=== PATIENT | female | born 2000 | race Two or more races ===

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

== ENCOUNTER 2021-06-29 18:09 | Inpatient (IN) | payer BC, OTHER ==
[~2021-06-29] VITALS: Ht 154.9 cm; Wt 75.5 kg
[2021-06-29] MEDS ORDERED: methylPREDNISolone SOD SUCC PF 125 MG/2 ML VIAL. IV ONE (18:30)
[2021-06-29] MEDS ORDERED: LIDOCAINE (700MG/PATCH) PATCH. TD ONE (18:30)
[2021-06-29] MEDS ORDERED: ORPHENADRINE CITRATE 60 MG/2 ML VIAL. IV ONE (18:30)
[2021-06-29] MEDS ORDERED: KETOROLAC 30 MG/ML VIAL. IVP ONE (18:30)
[2021-06-29] MEDS ORDERED: IV NORMAL SALINE 1000ML BAG 1,000 ML IV ONE (18:30)
[2021-06-29] MEDS ORDERED: ACETAMINOPHEN 500 MG TABLET PO ONE (18:30)
--- NOTE | 2021-06-29 19:07 | PHYS DOC ---
Past Medical History Past Medical History: No Pertinent History Additional Past Medical Histor: scoliosis Past Surgical History: No Surgical History Smoking Status: Never Smoker Alcohol Use: None Drug Use: None Adult General Chief Complaint Chief Complaint: BACK PAIN - NO INJURY HPI HPI The patient is a 20-year-old female with chronic low back pain and who is otherwise healthy. She presents for evaluation of acute atraumatic worsening of her chronic bilateral low back pain. Patient states she was laying partially on and partially off the couch with her feet down on the ground when she felt a sudden small pop in her low back followed by discomfort to the bilateral par aspinal musculature. Pain does not radiate. Severity 9 out of 10 at present. No associated fevers, nausea or vomiting, abdominal pain of any kind, flank pain, dysuria, hematuria, polyuria or oliguria, unusual vaginal discharge or bleeding, changes in bowel habits, loss of bowel or bladder control, saddle anesthesia, new lower extremity weakness, numbness or tingling, no urinary retention, use of intravenous illegal drugs. Patient is alert, pleasantly and appropriately interactive and in no acute distress with appropriate vital signs upon initial evaluation here in the emergency department. No therapy for symptoms prior to arrival. Review of Systems Review of Systems A 12 point review of systems was completed and was negative except where noted in HPI above. Current Medications Current Medications Current Medications Medications (Trade) Dose Ordered Sig/[facility] Start Time Stop Time Status Last Admin Dose Admin Acetaminophen (Tylenol) 1,000 mg 1X ONCE 06/29/21 18:30 06/29/21 18:31 DC 06/29/21 19:06 1,000 MG Ketorolac Tromethamine (Toradol 30mg Vial) 30 mg 1X ONCE 06/29/21 18:30 06/29/21 18:31 DC 06/29/21 18:59 30 MG Lidocaine (Lidoderm) 1 patch 1X ONCE 06/29/21 18:30 06/29/21 18:31 DC 06/29/21 19:42 1 PATCH Methylprednisolone Sodium Succinate (SOLU-Medrol 125MG VIAL) 125 mg 1X ONCE 06/29/21 18:30 06/29/21 18:31 DC 06/29/21 18:58 125 MG Morphine Sulfate (Morphine Sulfate) 4 mg 1X ONCE 06/29/21 20:00 06/29/21 20:01 DC 06/29/21 20:12 4 MG Orphenadrine Citrate (Norflex) 30 mg 1X ONCE 06/29/21 18:30 06/29/21 18:31 DC 06/29/21 18:58 30 MG Sodium Chloride 1,000 ml @ 1,000 mls/hr 1X ONCE 06/29/21 18:30 06/29/21 19:29 DC 06/29/21 18:57 1,000 MLS/HR Allergies Allergies Allergies Coded Allergies Type Severity Reaction Last Updated Verified No Known Drug Allergies 05/06/17 No Physical Exam Physical Exam 20-year-old female appearing nontoxic and in no acute distress. Head is normocephalic and atraumatic. Neck is supple and nontender. Oropharynx is moist. Lungs are clear to auscultation at all stations. There is a normal S1 and S2 without rubs or gallops and capillary refill is appropriate, less than 2 seconds globally. Abdomen is soft, nontender and nondistended. Examination of the back reveals no erythema, warmth, swelling, step-offs or deformities but mild lower lumbar midline and bilateral paraspinal tenderness to palpation. Evaluation of the extremities reveals BUEs and BLEs neurovascularly intact distally with strength out of 5, sensation intact light touch in all nerve distributions, radial, DP and PT pulses 2+ and equal bilaterally, capillary refill less than 2 seconds, hands and feet warm and well-perfused. No dependent peripheral edema distally. No calf tenderness or swelling bilaterally. Homans test is negative bilaterally. Straight leg raise is negative bilaterally. Current Patient Data Vital Signs Vital Signs Date Time Temp Pulse Resp B/P (MAP) Pulse Ox O2 Delivery O2 Flow Rate FiO2 06/29/21 20:12 Room Air 06/29/21 19:48 114 101/73 (82) 99 06/29/21 18:09 98.2 20 98.2 Lab Values Laboratory Tests Test 06/29/21 19:50 06/29/21 19:53 06/29/21 21:00 Urine Collection Type Unknown Urine Color (Auto) Light yellow Urine Turbidity Clear Urine pH (Auto) 6.5 (<5.0-8.0) Urine Specific [place] 1.020 (1.000-1.030) Urine Protein (Auto) Negative mg/dL (Negative) Urine Glucose (Auto)(UA) Negative mg/dL (Negative) Urine Ketones (Auto) Negative mg/dL (Negative) Urine Blood (Auto) Negative (Negative) Urine Nitrite Negative (Negative) Urine Bilirubin (Auto) Negative (Negative) Urine Urobilinogen (Auto) Normal mg/dL (Normal) Urine Leukocyte Esterase (Auto) Negative (Negative) Urine RBC 0 /HPF (0-2) Urine WBC Occ /HPF (0-4) Urine Bacteria Few /HPF (0-FEW) Urine Test Negative (NEG) POC Urine HCG, Qualitative Hcg negative (Negative) White Blood Count 8.2 x10^3/uL (4.0-11.0) Red Blood Count 4.39 x10^6/uL (3.50-5.40) Hemoglobin 13.7 g/dL (12.0-15.5) Hematocrit 40.0 % (36.0-47.0) Mean Corpuscular Volume 91 fL (79-100) Mean Corpuscular Hemoglobin 31 pg (25-35) Mean Corpuscular Hemoglobin Concent 34 g/dL (31-37) Red Cell Distribution Width 13.0 % (11.5-14.5) Platelet Count 316 x10^3/uL (140-400) Neutrophils (%) (Auto) 86 % (31-73) H Lymphocytes (%) (Auto) 9 % (24-48) L Monocytes (%) (Auto) 4 % (0-9) Eosinophils (%) (Auto) 0 % (0-3) Basophils (%) (Auto) 0 % (0-3) Neutrophils # (Auto) 7.1 x10^3/uL (1.8-7.7) Lymphocytes # (Auto) 0.8 x10^3/uL (1.0-4.8) L Monocytes # (Auto) 0.3 x10^3/uL (0.0-1.1) Eosinophils # (Auto) 0.0 x10^3/uL (0.0-0.7) Basophils # (Auto) 0.0 x10^3/uL (0.0-0.2) Laboratory Tests 06/29/21 21:00 EKG EKG [] Radiology/Procedures Radiology/Procedures [] Course & Med Decision Making Course & Med Decision Making Acute on chronic atraumatic low lumbar back pain without red flags for cord compression. We will give medication as per flow sheet, will check urinalysis and urine , and will then reevaluate. If symptoms improve, likely home with medications and follow-up closely with primary care. Patient understands and agrees. 2100: Patient has been observed for multiple hours here in the emergency department. After multiple rounds of medication her back pain remains poorly controlled. She feels okay when she is not moving but when she gets up to ambulate pain is intractable. Will bring in for further care, to include neurosurgical consultation. Patient is in agreement. She is graciously accepted for admission by Dr. Cote. Quintin Disclaimer Quintin Disclaimer This electronic medical record was generated, in whole or in part, using a voice recognition dictation system. Departure Departure Impression: Primary Impression: Dorsalgia of lumbosacral region Disposition: ADMITTED INPATIENT Condition: STABLE Referrals: UNKNOWN PCP NAME (PCP) TONY MONTEZ MD Jun 29, 2021 19:07
[2021-06-29 20:00] LABS: U PREG PATIENT NEGATIVE (NEG)
[2021-06-29] MEDS ORDERED: MORPHINE SULFATE 4 MG/ML INJ. IVP ONE (20:00)
[2021-06-29 20:02] LABS: BACTERIA,URINE FEW /HPF (0-FEW); RBC,URINE 0 /HPF (0-2); WBC,URINE OCC /HPF (0-4)
[2021-06-29 21:03] LABS: BASO % 0 % (0-3); EOS % 0 % (0-3); HEMOGLOBIN 13.7 g/dL (12.0-15.5); LYMPH # 0.8 x10^3/uL (1.0-4.8); LYMPH % 9 % (24-48); MEAN CORPUSCULAR HEMOGLOBIN 31 pg (25-35); MEAN CORPUSCULAR HGB CONC 34 g/dL (31-37); MEAN CORPUSCULAR VOLUME 91 fL (79-100); MONO # 0.3 x10^3/uL (0.0-1.1); MONO % 4 % (0-9); NEUT # 7.1 x10^3/uL (1.8-7.7); NEUT % 86 % (31-73); PLATELET COUNT 316 x10^3/uL (140-400); RED BLOOD COUNT 4.39 x10^6/uL (3.50-5.40); WHITE BLOOD COUNT 8.2 x10^3/uL (4.0-11.0)
[2021-06-29] MEDS ORDERED: ONDANSETRON PF 4 MG/2 ML VIAL. IVP PRN (22:00)
[2021-06-29] MEDS ORDERED: KETOROLAC 15 MG/ML VIAL. IVP PRN (22:00)
[2021-06-29 22:08] LABS: CALCIUM 8.4 mg/dL (8.5-10.1); CREATININE 0.6 mg/dL (0.6-1.0); GFR 128.8; POTASSIUM 3.8 mmol/L (3.5-5.1)
[2021-06-29 22:16] LABS: ALBUMIN 3.8 g/dL (3.4-5.0); ALBUMIN/GLOBULIN RATIO 1.2 (1.0-1.7); TOTAL BILIRUBIN 0.3 mg/dL (0.2-1.0); TOTAL PROTEIN 7.1 g/dL (6.4-8.2)
[2021-06-29 22:30] VITALS: BP 110/74
[2021-06-30] MEDS: MORPHINE SULFATE 2 MG/ML INJ. IVP PRN ×2 (01:07→14:19)
[2021-06-30 03:00] VITALS: BP 107/67
[2021-06-30 06:19] LABS: BASO % 0 % (0-3); EOS % 0 % (0-3); HEMATOCRIT 43.3 % (36.0-47.0); HEMOGLOBIN 14.6 g/dL (12.0-15.5); LYMPH # 0.5 x10^3/uL (1.0-4.8); LYMPH % 6 % (24-48); MEAN CORPUSCULAR HEMOGLOBIN 31 pg (25-35); MEAN CORPUSCULAR HGB CONC 34 g/dL (31-37); MEAN CORPUSCULAR VOLUME 91 fL (79-100); MONO # 0.1 x10^3/uL (0.0-1.1); MONO % 1 % (0-9); NEUT # 6.5 x10^3/uL (1.8-7.7); NEUT % 93 % (31-73); PLATELET COUNT 324 x10^3/uL (140-400); RED BLOOD COUNT 4.74 x10^6/uL (3.50-5.40); WHITE BLOOD COUNT 7.1 x10^3/uL (4.0-11.0)
[2021-06-30 06:35] LABS: CALCIUM 8.8 mg/dL (8.5-10.1); CREATININE 0.4 mg/dL (0.6-1.0); GFR 205.6; POTASSIUM 3.9 mmol/L (3.5-5.1)
[2021-06-30 07:00] VITALS: BP 102/71
[2021-06-30] MEDS: predniSONE 10 MG TABLET PO SCH (09:26)
[2021-06-30 10:44] VITALS: BP 105/67
[2021-06-30] MEDS ORDERED: ACETAMINOPHEN 325 MG TABLET. PO PRN (13:00)
--- NOTE | 2021-06-30 13:16 | PDOC1 ---
History and Physical Date of Service: DOS: DATE: 06/30/21 TIME: 13:16 Chief Complaint: Chief Complain: back pain History of Present Illness: HPI: The patient is a 20-year-old female with chronic low back pain and who is otherwise healthy. She presents for evaluation of acute atraumatic worsening of her chronic bilateral low back pain. Patient states she was laying partially on and partially off the couch with her feet down on the ground when she felt a sudden small pop in her low back followed by discomfort to the bilateral paraspinal musculature. Pain does not radiate. Severity 9 out of 10 at present. No associated fevers, nausea or vomiting, abdominal pain of any kind, flank pain, dysuria, hematuria, polyuria or oliguria, unusual vaginal discharge or bleeding, changes in bowel habits, loss of bowel or bladder control, saddle anesthesia, new lower extremity weakness, numbness or tingling, no urinary retention, use of intravenous illegal drugs. Patient is alert, pleasantly and appropriately interactive and in no acute d istress when evaluated Past Medical/Surgical History: PMH/PSH: Denies Allergies: Allergies: Coded Allergies: No Known Drug Allergies (Unverified , 05/06/17) Family History: Family History: No known Social History: Social History: Denies alcohol tobacco drug use Current Medications: Current Medications Current Medications Ketorolac Tromethamine (Toradol 30mg Vial) 30 mg 1X ONCE IVP Last administered on 06/29/21at 18:59; Start 06/29/21 at 18:30; Stop 06/29/21 at 18:31; Status DC Methylprednisolone Sodium Succinate (SOLU-Medrol 125MG VIAL) 125 mg 1X ONCE IV Last administered on 06/29/21at 18:58; Start 06/29/21 at 18:30; Stop 06/29/21 at 18:31; Status DC Acetaminophen (Tylenol) 1,000 mg 1X ONCE PO Last administered on 06/29/21at 19:06; Start 06/29/21 at 18:30; Stop 06/29/21 at 18:31; Status DC Orphenadrine Citrate (Norflex) 30 mg 1X ONCE IV Last administered on 06/29/21at 18:58; Start 06/29/21 at 18:30; Stop 06/29/21 at 18:31; Status DC Lidocaine (Lidoderm) 1 patch 1X ONCE TD Last administered on 06/29/21at 19:42; Start 06/29/21 at 18:30; Stop 06/29/21 at 18:31; Status DC Sodium Chloride 1,000 ml @ 1,000 mls/hr 1X ONCE IV Last administered on 06/29/21at 18:57; Start 06/29/21 at 18:30; Stop 06/29/21 at 19:29; Status DC Morphine Sulfate (Morphine Sulfate) 4 mg 1X ONCE IVP Last administered on 06/29/21at 20:12; Start 06/29/21 at 20:00; Stop 06/29/21 at 20:01; Status DC Ondansetron HCl (Zofran) 4 mg PRN Q8HRS PRN IVP NAUSEA/VOMITING 1ST CHOICE; Start 06/29/21 at 22:00; Stop 06/30/21 at 21:59 Morphine Sulfate (Morphine Sulfate) 2 mg PRN Q2HR PRN IVP SEVERE PAIN 7-10 Last administered on 06/30/21at 01:07; Start 06/29/21 at 22:00; Stop 06/30/21 at 21:59 Prednisone (Prednisone) 50 mg DAILY PO Last administered on 06/30/21at 09:26; Start 06/30/21 at 09:00 Ketorolac Tromethamine (Toradol 15mg Vial) 15 mg PRN Q6HRS PRN IVP INFLAMMATION Last administered on 06/30/21at 09:27; Start 06/29/21 at 22:00; Stop 07/04/21 at 21:59 Tizanidine HCl (Zanaflex) 4 mg Q8HRS PO ; Start 06/30/21 at 14:00 Acetaminophen/ Hydrocodone Bitart (Lortab 5/325) 1 tab PRN Q4HRS PRN PO PAIN; Start 06/30/21 at 13:00 Acetaminophen (Tylenol) 650 mg PRN Q6HRS PRN PO MILD PAIN / TEMP > 100.3'F; Start 06/30/21 at 13:00 Active Scripts Active ROS: Review of Systems Review of System Unless noted in HPI 14 point review of systems was negative Physical Exam: Vital Signs: Vital Signs Date Time Temp Pulse Resp B/P (MAP) Pulse Ox O2 Delivery O2 Flow Rate FiO2 06/30/21 10:44 98.6 66 18 105/67 (80) 96 Room Air 98.6 Physcial Exam: GEN: No apparent distress. Alert and oriented HEENT: Normal cephalic, atraumatic, external auditory canals are patent EYES: Extraocular muscles are intact, pupil are equally round and reactive to light and accommodation MUSCULOSKELETAL: Well developed , well nourished, good range of motion ENDOCRINE: No thyromegaly was palpated LYMPHATICS: No cervical chain or axillary nodes were noted HEMATOPOIETIC: No bruising NECK: Supple, no JVD, no thyromegaly was noted LUNGS: Clear to auscultation in all lung black without rhonchi or wheezing HEART: RRR, S!, S2 present. Peripheral pulses intact, no obvious murmurs noted ABDOMEN: Soft, nontender. Positive bowel sounds, no organomegaly, normal bowel sounds EXTREMITIES: Without clubbing, cyanosis, or edema. Pedal pulses intact. Negative Homans sign NEUROLOGIC: Normal speech and tone. A&O x 3, moves all extremities, no obvious focal deficits PSYCHIATRIC: Normal affect, normal mood. Stable SKIN: No ulcerations or rashes, good skin turgor, no jaundice VASCULAR: Good capillary refill, neurovascular bundle appears to be intact Labs: Labs: Laboratory Tests Test 06/29/21 19:50 06/29/21 19:53 06/29/21 21:00 06/29/21 21:50 Urine Collection Type Unknown Urine Color (Auto) Light yellow Urine Turbidity Clear Urine pH (Auto) 6.5 (<5.0-8.0) Urine Specific [place] 1.020 (1.000-1.030) Urine Protein (Auto) Negative mg/dL (Negative) Urine Glucose (Auto)(UA) Negative mg/dL (Negative) Urine Ketones (Auto) Negative mg/dL (Negative) Urine Blood (Auto) Negative (Negative) Urine Nitrite Negative (Negative) Urine Bilirubin (Auto) Negative (Negative) Urine Urobilinogen (Auto) Normal mg/dL (Normal) Urine Leukocyte Esterase (Auto) Negative (Negative) Urine RBC 0 /HPF (0-2) Urine WBC Occ /HPF (0-4) Urine Bacteria Few /HPF (0-FEW) Urine Test Negative (NEG) Bedside Urine HCG, Qualitative Hcg negative (Negative) White Blood Count 8.2 x10^3/uL (4.0-11.0) Red Blood Count 4.39 x10^6/uL (3.50-5.40) Hemoglobin 13.7 g/dL (12.0-15.5) Hematocrit 40.0 % (36.0-47.0) Mean Corpuscular Volume 91 fL (79-100) Mean Corpuscular Hemoglobin 31 pg (25-35) Mean Corpuscular Hemoglobin Concent 34 g/dL (31-37) Red Cell Distribution Width 13.0 % (11.5-14.5) Platelet Count 316 x10^3/uL (140-400) Neutrophils (%) (Auto) 86 % (31-73) Lymphocytes (%) (Auto) 9 % (24-48) Monocytes (%) (Auto) 4 % (0-9) Eosinophils (%) (Auto) 0 % (0-3) Basophils (%) (Auto) 0 % (0-3) Neutrophils # (Auto) 7.1 x10^3/uL (1.8-7.7) Lymphocytes # (Auto) 0.8 x10^3/uL (1.0-4.8) Monocytes # (Auto) 0.3 x10^3/uL (0.0-1.1) Eosinophils # (Auto) 0.0 x10^3/uL (0.0-0.7) Basophils # (Auto) 0.0 x10^3/uL (0.0-0.2) Sodium Level 140 mmol/L (136-145) Potassium Level 3.8 mmol/L (3.5-5.1) Chloride Level 107 mmol/L (98-107) Carbon Dioxide Level 24 mmol/L (21-32) Anion Gap 9 (6-14) Blood Urea Nitrogen 16 mg/dL (7-20) Creatinine 0.6 mg/dL (0.6-1.0) Estimated GFR (Cockcroft-Gault) 128.8 BUN/Creatinine Ratio 27 (6-20) Glucose Level 117 mg/dL (70-99) Calcium Level 8.4 mg/dL (8.5-10.1) Total Bilirubin 0.3 mg/dL (0.2-1.0) Aspartate Amino Transf (AST/SGOT) 11 U/L (15-37) Alanine Aminotransferase (ALT/SGPT) 20 U/L (14-59) Alkaline Phosphatase 43 U/L (46-116) Total Protein 7.1 g/dL (6.4-8.2) Albumin 3.8 g/dL (3.4-5.0) Albumin/Globulin Ratio 1.2 (1.0-1.7) Test 06/30/21 05:30 White Blood Count 7.1 x10^3/uL (4.0-11.0) Red Blood Count 4.74 x10^6/uL (3.50-5.40) Hemoglobin 14.6 g/dL (12.0-15.5) Hematocrit 43.3 % (36.0-47.0) Mean Corpuscular Volume 91 fL (79-100) Mean Corpuscular Hemoglobin 31 pg (25-35) Mean Corpuscular Hemoglobin Concent 34 g/dL (31-37) Red Cell Distribution Width 13.0 % (11.5-14.5) Platelet Count 324 x10^3/uL (140-400) Neutrophils (%) (Auto) 93 % (31-73) Lymphocytes (%) (Auto) 6 % (24-48) Monocytes (%) (Auto) 1 % (0-9) Eosinophils (%) (Auto) 0 % (0-3) Basophils (%) (Auto) 0 % (0-3) Neutrophils # (Auto) 6.5 x10^3/uL (1.8-7.7) Lymphocytes # (Auto) 0.5 x10^3/uL (1.0-4.8) Monocytes # (Auto) 0.1 x10^3/uL (0.0-1.1) Eosinophils # (Auto) 0.0 x10^3/uL (0.0-0.7) Basophils # (Auto) 0.0 x10^3/uL (0.0-0.2) Sodium Level 139 mmol/L (136-145) Potassium Level 3.9 mmol/L (3.5-5.1) Chloride Level 106 mmol/L (98-107) Carbon Dioxide Level 24 mmol/L (21-32) Anion Gap 9 (6-14) Blood Urea Nitrogen 11 mg/dL (7-20) Creatinine 0.4 mg/dL (0.6-1.0) Estimated GFR (Cockcroft-Gault) 205.6 Glucose Level 126 mg/dL (70-99) Calcium Level 8.8 mg/dL (8.5-10.1) Laboratory Tests Test 06/29/21 19:50 06/29/21 19:53 06/29/21 21:00 06/29/21 21:50 Urine Collection Type Unknown Urine Color (Auto) Light yellow Urine Turbidity Clear Urine pH (Auto) 6.5 (<5.0-8.0) Urine Specific [place] 1.020 (1.000-1.030) Urine Protein (Auto) Negative mg/dL (Negative) Urine Glucose (Auto)(UA) Negative mg/dL (Negative) Urine Ketones (Auto) Negative mg/dL (Negative) Urine Blood (Auto) Negative (Negative) Urine Nitrite Negative (Negative) Urine Bilirubin (Auto) Negative (Negative) Urine Urobilinogen (Auto) Normal mg/dL (Normal) Urine Leukocyte Esterase (Auto) Negative (Negative) Urine RBC 0 /HPF (0-2) Urine WBC Occ /HPF (0-4) Urine Bacteria Few /HPF (0-FEW) Urine Test Negative (NEG) Bedside Urine HCG, Qualitative Hcg negative (Negative) White Blood Count 8.2 x10^3/uL (4.0-11.0) Red Blood Count 4.39 x10^6/uL (3.50-5.40) Hemoglobin 13.7 g/dL (12.0-15.5) Hematocrit 40.0 % (36.0-47.0) Mean Corpuscular Volume 91 fL (79-100) Mean Corpuscular Hemoglobin 31 pg (25-35) Mean Corpuscular Hemoglobin Concent 34 g/dL (31-37) Red Cell Distribution Width 13.0 % (11.5-14.5) Platelet Count 316 x10^3/uL (140-400) Neutrophils (%) (Auto) 86 % (31-73) Lymphocytes (%) (Auto) 9 % (24-48) Monocytes (%) (Auto) 4 % (0-9) Eosinophils (%) (Auto) 0 % (0-3) Basophils (%) (Auto) 0 % (0-3) Neutrophils # (Auto) 7.1 x10^3/uL (1.8-7.7) Lymphocytes # (Auto) 0.8 x10^3/uL (1.0-4.8) Monocytes # (Auto) 0.3 x10^3/uL (0.0-1.1) Eosinophils # (Auto) 0.0 x10^3/uL (0.0-0.7) Basophils # (Auto) 0.0 x10^3/uL (0.0-0.2) Sodium Level 140 mmol/L (136-145) Potassium Level 3.8 mmol/L (3.5-5.1) Chloride Level 107 mmol/L (98-107) Carbon Dioxide Level 24 mmol/L (21-32) Anion Gap 9 (6-14) Blood Urea Nitrogen 16 mg/dL (7-20) Creatinine 0.6 mg/dL (0.6-1.0) Estimated GFR (Cockcroft-Gault) 128.8 BUN/Creatinine Ratio 27 (6-20) Glucose Level 117 mg/dL (70-99) Calcium Level 8.4 mg/dL (8.5-10.1) Total Bilirubin 0.3 mg/dL (0.2-1.0) Aspartate Amino Transf (AST/SGOT) 11 U/L (15-37) Alanine Aminotransferase (ALT/SGPT) 20 U/L (14-59) Alkaline Phosphatase 43 U/L (46-116) Total Protein 7.1 g/dL (6.4-8.2) Albumin 3.8 g/dL (3.4-5.0) Albumin/Globulin Ratio 1.2 (1.0-1.7) Test 06/30/21 05:30 White Blood Count 7.1 x10^3/uL (4.0-11.0) Red Blood Count 4.74 x10^6/uL (3.50-5.40) Hemoglobin 14.6 g/dL (12.0-15.5) Hematocrit 43.3 % (36.0-47.0) Mean Corpuscular Volume 91 fL (79-100) Mean Corpuscular Hemoglobin 31 pg (25-35) Mean Corpuscular Hemoglobin Concent 34 g/dL (31-37) Red Cell Distribution Width 13.0 % (11.5-14.5) Platelet Count 324 x10^3/uL (140-400) Neutrophils (%) (Auto) 93 % (31-73) Lymphocytes (%) (Auto) 6 % (24-48) Monocytes (%) (Auto) 1 % (0-9) Eosinophils (%) (Auto) 0 % (0-3) Basophils (%) (Auto) 0 % (0-3) Neutrophils # (Auto) 6.5 x10^3/uL (1.8-7.7) Lymphocytes # (Auto) 0.5 x10^3/uL (1.0-4.8) Monocytes # (Auto) 0.1 x10^3/uL (0.0-1.1) Eosinophils # (Auto) 0.0 x10^3/uL (0.0-0.7) Basophils # (Auto) 0.0 x10^3/uL (0.0-0.2) Sodium Level 139 mmol/L (136-145) Potassium Level 3.9 mmol/L (3.5-5.1) Chloride Level 106 mmol/L (98-107) Carbon Dioxide Level 24 mmol/L (21-32) Anion Gap 9 (6-14) Blood Urea Nitrogen 11 mg/dL (7-20) Creatinine 0.4 mg/dL (0.6-1.0) Estimated GFR (Cockcroft-Gault) 205.6 Glucose Level 126 mg/dL (70-99) Calcium Level 8.8 mg/dL (8.5-10.1) Assessment/Plan Assessment/Plan Intractable back pain -As needed pain control -Neurosurgery consulted in emergency room MRI ordered -We will consult PMR, Dr Ramesh, -PT OT -Regular diet Justifications for Admission Other Justification JAMEY LOPEZ MD Jun 30, 2021 13:16
[2021-06-30] MEDS: tiZANidine 4 MG TABLET. PO SCH ×2 (15:49→22:05)
--- NOTE | 2021-06-30 15:49 | RAD ---
MR LUMBAR SPINE [id number] History: Reason: intractable back pain / Spl. Instructions: / History: Technique: Multiplanar, multi sequential MR imaging was performed of the lumbar spine. Comparison: None Findings: Normal vertebral body height and alignment. No fracture. Conus terminates at the normal location. No evidence of nerve root clumping. L1-L2: No canal or neuroforaminal narrowing. L2-L3: No canal or neuroforaminal narrowing. L3-L4: No canal or neuroforaminal narrowing. L4-L5: No canal or neuroforaminal narrowing. L5-S1: Small disc bulge eccentric to the right. Mild subarticular recess narrowing. No canal narrowi ng. Slight abutment of the descending S1 nerve roots, right greater than left. Mild facet arthropathy . Mild right neuroforaminal narrowing. Impression: 1. Mild L5-S1 spondylosis with mild subarticular recess narrowing and abutment of the descending S1 nerve roots, right greater than left. Correlate for radiculopathy. Electronically signed by: Hari Ordoñez DO (06/30/2021 3:47 PM) [id number]
--- NOTE | 2021-06-30 15:49 | RAD ---
XR THORACIC SPINE 1 VIEW, XR LUMBAR SPINE 2-3V History: Reason: lateral view back pain / Spl. Instructions: / History: Technique: Single lateral view of the thoracic spine and 2 views of the lumbar spine. Comparison: None. Findings: Normal vertebral body height and alignment. No acute fracture. Disc spaces are well-maintained. Impression: 1. No acute osseous abnormality. Electronically signed by: Hari Ordoñez DO (06/30/2021 3:47 PM) [id number]
[2021-06-30 19:20] VITALS: BP 103/77
--- NOTE | 2021-06-30 21:22 | CONS ---
DATE OF CONSULTATION: 06/30/2021 ATTENDING PHYSICIAN: Dr. Cote. REASON FOR CONSULTATION: The patient was seen at the request of Dr. Cote for rehab evaluation. HISTORY OF PRESENT ILLNESS: This is a 20-year-old female who works at [employer]. The patient started having sudden onset of mid and lower back pain without any specific injury. She woke up with it while lying on the couch with her feet down on the ground. She felt a sudden pop in her back, followed by severe pain. The patient denies any radiation of pain to the extremities or any trouble with her bowel or bladder control. The patient denies any chronic back pain. ALLERGIES: The patient is not known allergic to any medications. PHYSICAL EXAMINATION: Revealed an young lady patient in no acute distress. The patient had pain on lumbar and lower thoracic spine range of motion with tenderness to palpation over lower thoracic and lumbar paraspinal muscles. Straight leg raising test is negative bilaterally, painful limited movements of her lumbar spine. The patient requires some help in coming to a sitting position and standing position, but once up with a lumbar corset she got up and walked using a roller walker with somewhat wide-based gait. She keeps her back stiff. She had moderate degree of lower thoracic and lumbar paraspinal muscle spasm. She had normal neurological examination of her lower extremities. ASSESSMENT: A young female with acute lumbar and lower thoracic sprain. No clinical evidence of thoracic or lumbar radiculopathy. RECOMMENDATION: To obtain x-rays of her thoracic and lumbar spine to start her on muscle relaxant and oral pain medications and she already started on prednisone. Agree with the plans for physical therapy. I have reviewed with her a home program of physical modalities, trigger point massage and relax stretching exercise to her back muscles and proper body mechanics with bed mobility and transfers. Hopefully, home with outpatient followup the next day or so when she feels more comfortable to consider lumbar corset in trigger point injections if the pain persists. Dr. Cote, I appreciate asking me to participate in the care of this interesting patient. I will be glad to see her for followup with you on as needed basis. MICAELA/AYLA STEVE: Zoey TID: [id number]
[2021-06-30 23:17] VITALS: BP 100/62
[2021-07-01 02:43] VITALS: BP 106/66
[2021-07-01] MEDS: tiZANidine 4 MG TABLET. PO SCH ×2 (06:07→14:16)
[2021-07-01] MEDS: HYDROcodone/APAP 5/325MG 1 TAB TABLET PO PRN ×2 (06:09→12:09)
[2021-07-01 07:10] VITALS: BP 99/59
[2021-07-01] MEDS: predniSONE 10 MG TABLET PO SCH (07:49)
--- NOTE | 2021-07-01 10:39 | PDOC ---
PROGRESS NOTES Date of Service DATE: 07/01/21 TIME: 10:35 Subjective Subjective She admits less pain. Objective Objective Vital Signs Date Time Temp Pulse Resp B/P (MAP) Pulse Ox O2 Delivery O2 Flow Rate FiO2 07/01/21 08:00 Room Air 07/01/21 07:10 98.1 62 16 99/59 (72) 97 98.1 Intake and Output 07/01/21 07:00 Intake Total 1320 ml Output Total 0 ml Balance 1320 ml Intake Oral 1020 ml Tube Feeding 300 ml Output Urine Total 0 ml Physical Exam Physical Exam She is alert,supine in bed with lumbar support in place and she got up and [place] without roller walker but still keeps her low back stiff and she had tenderness to palpation over lower thoracic and lumbar paraspinal muscles and painfully limited lower thoracic and lumbar spine and SLR test is negative bilaterally. X-rays of thoracic and lumbar spine are WNL. Assessment Assessment Problems Medical Problems: (1) Acute lumbosacral myofascial strain Status: Acute (2) Dorsalgia of lumbosacral region Status: Acute Plan Plan of Senior Care later on today or tomorrow with out patient follow up when medically stable. Comment Review of Relevant I have reviewed the following items yamileth (where applicable) has been applied. Labs Laboratory Tests Test 06/29/21 19:50 06/29/21 19:53 06/29/21 21:00 06/29/21 21:50 Urine Collection Type Unknown Urine Color (Auto) Light yellow Urine Turbidity Clear Urine pH (Auto) 6.5 (<5.0-8.0) Urine Specific [place] 1.020 (1.000-1.030) Urine Protein (Auto) Negative mg/dL (Negative) Urine Glucose (Auto)(UA) Negative mg/dL (Negative) Urine Ketones (Auto) Negative mg/dL (Negative) Urine Blood (Auto) Negative (Negative) Urine Nitrite Negative (Negative) Urine Bilirubin (Auto) Negative (Negative) Urine Urobilinogen (Auto) Normal mg/dL (Normal) Urine Leukocyte Esterase (Auto) Negative (Negative) Urine RBC 0 /HPF (0-2) Urine WBC Occ /HPF (0-4) Urine Bacteria Few /HPF (0-FEW) Urine Test Negative (NEG) Bedside Urine HCG, Qualitative Hcg negative (Negative) White Blood Count 8.2 x10^3/uL (4.0-11.0) Red Blood Count 4.39 x10^6/uL (3.50-5.40) Hemoglobin 13.7 g/dL (12.0-15.5) Hematocrit 40.0 % (36.0-47.0) Mean Corpuscular Volume 91 fL (79-100) Mean Corpuscular Hemoglobin 31 pg (25-35) Mean Corpuscular Hemoglobin Concent 34 g/dL (31-37) Red Cell Distribution Width 13.0 % (11.5-14.5) Platelet Count 316 x10^3/uL (140-400) Neutrophils (%) (Auto) 86 % (31-73) Lymphocytes (%) (Auto) 9 % (24-48) Monocytes (%) (Auto) 4 % (0-9) Eosinophils (%) (Auto) 0 % (0-3) Basophils (%) (Auto) 0 % (0-3) Neutrophils # (Auto) 7.1 x10^3/uL (1.8-7.7) Lymphocytes # (Auto) 0.8 x10^3/uL (1.0-4.8) Monocytes # (Auto) 0.3 x10^3/uL (0.0-1.1) Eosinophils # (Auto) 0.0 x10^3/uL (0.0-0.7) Basophils # (Auto) 0.0 x10^3/uL (0.0-0.2) Sodium Level 140 mmol/L (136-145) Potassium Level 3.8 mmol/L (3.5-5.1) Chloride Level 107 mmol/L (98-107) Carbon Dioxide Level 24 mmol/L (21-32) Anion Gap 9 (6-14) Blood Urea Nitrogen 16 mg/dL (7-20) Creatinine 0.6 mg/dL (0.6-1.0) Estimated GFR (Cockcroft-Gault) 128.8 BUN/Creatinine Ratio 27 (6-20) Glucose Level 117 mg/dL (70-99) Calcium Level 8.4 mg/dL (8.5-10.1) Total Bilirubin 0.3 mg/dL (0.2-1.0) Aspartate Amino Transf (AST/SGOT) 11 U/L (15-37) Alanine Aminotransferase (ALT/SGPT) 20 U/L (14-59) Alkaline Phosphatase 43 U/L (46-116) Total Protein 7.1 g/dL (6.4-8.2) Albumin 3.8 g/dL (3.4-5.0) Albumin/Globulin Ratio 1.2 (1.0-1.7) Test 06/30/21 05:30 White Blood Count 7.1 x10^3/uL (4.0-11.0) Red Blood Count 4.74 x10^6/uL (3.50-5.40) Hemoglobin 14.6 g/dL (12.0-15.5) Hematocrit 43.3 % (36.0-47.0) Mean Corpuscular Volume 91 fL (79-100) Mean Corpuscular Hemoglobin 31 pg (25-35) Mean Corpuscular Hemoglobin Concent 34 g/dL (31-37) Red Cell Distribution Width 13.0 % (11.5-14.5) Platelet Count 324 x10^3/uL (140-400) Neutrophils (%) (Auto) 93 % (31-73) Lymphocytes (%) (Auto) 6 % (24-48) Monocytes (%) (Auto) 1 % (0-9) Eosinophils (%) (Auto) 0 % (0-3) Basophils (%) (Auto) 0 % (0-3) Neutrophils # (Auto) 6.5 x10^3/uL (1.8-7.7) Lymphocytes # (Auto) 0.5 x10^3/uL (1.0-4.8) Monocytes # (Auto) 0.1 x10^3/uL (0.0-1.1) Eosinophils # (Auto) 0.0 x10^3/uL (0.0-0.7) Basophils # (Auto) 0.0 x10^3/uL (0.0-0.2) Sodium Level 139 mmol/L (136-145) Potassium Level 3.9 mmol/L (3.5-5.1) Chloride Level 106 mmol/L (98-107) Carbon Dioxide Level 24 mmol/L (21-32) Anion Gap 9 (6-14) Blood Urea Nitrogen 11 mg/dL (7-20) Creatinine 0.4 mg/dL (0.6-1.0) Estimated GFR (Cockcroft-Gault) 205.6 Glucose Level 126 mg/dL (70-99) Calcium Level 8.8 mg/dL (8.5-10.1) Medications Current Medications Ketorolac Tromethamine (Toradol 30mg Vial) 30 mg 1X ONCE IVP Last administered on 06/29/21 18:59; Start 06/29/21 at 18:30; Stop 06/29/21 at 18:31; Status DC Methylprednisolone Sodium Succinate (SOLU-Medrol 125MG VIAL) 125 mg 1X ONCE IV Last administered on 06/29/21at 18:58; Start 06/29/21 at 18:30; Stop 06/29/21 at 18:31; Status DC Acetaminophen (Tylenol) 1,000 mg 1X ONCE PO Last administered on 06/29/21 19:06; Start 06/29/21 at 18:30; Stop 06/29/21 at 18:31; Status DC Orphenadrine Citrate (Norflex) 30 mg 1X ONCE IV Last administered on 06/29/21at 18:58; Start 06/29/21 at 18:30; Stop 06/29/21 at 18:31; Status DC Lidocaine (Lidoderm) 1 patch 1X ONCE TD Last administered on 06/29/21 19:42; Start 06/29/21 at 18:30; Stop 06/29/21 at 18:31; Status DC Sodium Chloride 1,000 ml @ 1,000 mls/hr 1X ONCE IV Last administered on 06/29/21at 18:57; Start 06/29/21 at 18:30; Stop 06/29/21 at 19:29; Status DC Morphine Sulfate (Morphine Sulfate) 4 mg 1X ONCE IVP Last administered on 06/29/21at 20:12; Start 06/29/21 at 20:00; Stop 06/29/21 at 20:01; Status DC Ondansetron HCl (Zofran) 4 mg PRN Q8HRS PRN IVP NAUSEA/VOMITING 1ST CHOICE; Start 06/29/21 at 22:00; Stop 06/30/21 at 21:59; Status DC Morphine Sulfate (Morphine Sulfate) 2 mg PRN Q2HR PRN IVP SEVERE PAIN 7-10 Last administered on 06/30/21at 14:19; Start 06/29/21 at 22:00; Stop 06/30/21 at 21:59; Status DC Prednisone (Prednisone) 50 mg DAILY PO Last administered on 07/01/21at 07:49; Start 06/30/21 at 09:00 Ketorolac Tromethamine (Toradol 15mg Vial) 15 mg PRN Q6HRS PRN IVP INFLAMMATION Last administered on 06/30/21at 09:27; Start 06/29/21 at 22:00; Stop 07/04/21 at 21:59 Tizanidine HCl (Zanaflex) 4 mg Q8HRS PO Last administered on 07/01/21at 06:07; Start 06/30/21 at 14:00 Acetaminophen/ Hydrocodone Bitart (Lortab 5/325) 1 tab PRN Q4HRS PRN PO PAIN Last administered on 07/01/21at 06:09; Start 06/30/21 at 13:00 Acetaminophen (Tylenol) 650 mg PRN Q6HRS PRN PO MILD PAIN / TEMP > 100.3'F; Start 06/30/21 at 13:00 Active Scripts Active Vitals/I & O Vital Sign - Last 24 Hours 06/30/21 06/30/21 06/30/21 06/30/21 10:44 14:19 15:00 19:20 Temp 98.6 97.7 98.6 97.7 Pulse 66 75 Resp 18 18 B/P (MAP) 105/67 (80) 103/77 (86) Pulse Ox 96 94 O2 Delivery Room Air Room Air Room Air Room Air 06/30/21 06/30/21 07/01/21 07/01/21 19:45 23:17 02:43 06:09 Temp 98.0 98.4 98.0 98.4 Pulse 72 72 Resp 18 18 20 B/P (MAP) 100/62 (75) 106/66 (79) Pulse Ox 97 97 O2 Delivery Room Air Room Air Room Air Room Air 07/01/21 07/01/21 07/01/21 06:39 07:10 08:00 Temp 98.1 98.1 Pulse 62 Resp 20 16 B/P (MAP) 99/59 (72) Pulse Ox 97 O2 Delivery Room Air Room Air Room Air Intake and Output 06/30/21 06/30/21 07/01/21 15:00 23:00 07:00 Intake Total 480 ml 740 ml 100 ml Output Total 0 ml 0 ml Balance 480 ml 740 ml 100 ml Justifications for Admission Other Justification SHARON BETHEA MD Jul 01, 2021 10:39
[2021-07-01] MEDS ORDERED: MAGNESIUM HYDROXIDE 2,400 MG/30 ML ORAL.SUSP. PO PRN (10:45)
[2021-07-01 11:26] VITALS: BP 114/69
[2021-07-01] MEDS ORDERED: PRED-220 PO (11:28)
[2021-07-01] MEDS ORDERED: TIZA-75 PO (11:28)
[2021-07-01] MEDS ORDERED: HYDR-2761 PO (11:28)
--- NOTE | 2021-07-01 15:25 | NUR ---
Patient discharged home with self care. Patient verbalized understanding of discharge instructions. Parents at bedside.
== END 2021-07-01 15:27 | disposition home or self-care (01) | DRG 552 ==
LOC: ER 18:09 → 4 NORTH 21:12
PROVIDERS: ADMIT Internal Medicine; ATTEND Internal Medicine
DX: S23.3XXA Sprain of ligaments of thoracic spine, initial encounter (principal); G89.29 Other chronic pain; S39.012A Strain of muscle, fascia and tendon of lower back, initial encounter; X58.XXXA Exposure to other specified factors, initial encounter; S33.5XXA Sprain of ligaments of lumbar spine, initial encounter; Y93.89 Activity, other specified; Y92.89 Other specified places as the place of occurrence of the external cause; Y99.8 Other external cause status
CPT/HCPCS: 36415; 72020; 72100; 72148; 80048; 80053; 81001; 81025; 85025; 96361; 96374; 96375; J1885; J2270; J2360; J2930; J7030; J7512; 97110-GP; 99285-25; G0378